=== PATIENT | female | born 1995 | race Caucasian/White ===

== ENCOUNTER 2019-06-05 10:35 | Emergency (ER) | payer BC ==
[2019-06-05] MEDS ORDERED: METOCLOPRAMIDE 10 MG/2mL INJ ONE (10:55)
[2019-06-05] MEDS ORDERED: KETOROLAC 30 MG/ML INJ ONE (10:55)
[2019-06-05] MEDS ORDERED: NA CHLORIDE 0.9% 1,000 ML ONE (10:55)
[2019-06-05] MEDS ORDERED: DIPHENHYDRAMINE 50 MG/ML VIAL ONE (10:55)
[2019-06-05] MEDS ORDERED: dexAMETHasone 10 MG/ML VIAL ONE (10:56)
--- NOTE | 2019-06-05 12:25 | EDPHYS ---
Physician Documentation [facility] Name: Carolyn Hicks Age: 23 yrs Sex: Female : 1995 Arrival Date: 06/05/2019 Time: 10:38 Bed 6 Private MD: Julián Evans E ED Physician Shamar Seals HPI: 06/05 10:40 This 23 yrs old Female presents to ER via Ambulatory with complaints of jmm Headache. 10:40 Onset: The symptoms/episode began/occurred gradually, 1 day(s) ago. Associated signs jmm and symptoms: Pertinent positives: nausea, Photophobia vomiting. the symptoms are aggravated by lights. The patient has experienced similar episodes in the past. This is a 23 year old female with a history of migraines that presents to the ED with complaints of migraine headache beginning yesterday which is not relieved by home medication. Patient complains of photosensitivity, vomiting. Patient has had similar headaches before and is gradual onset. . 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 - Coronavirus screen:: The patient has NOT traveled to [place], [place], or [place] in the past 14 days. The patient has NOT had contact with known/suspected case of Coronavirus? Proceed with normal triage procedures. - Social history:: Smoking status: Patient denies any tobacco usage or history of. - Ebola Screening: : No symptoms or risks identified at this time. ROS: 10:40 Constitutional: Negative for fever, chills, and weight loss, Cardiovascular: Negative jmm for chest pain, palpitations, and edema, Respiratory: Negative for shortness of breath, cough, wheezing, and pleuritic chest pain. 10:40 Abdomen/GI: Positive for nausea, vomiting. 10:40 Neuro: Positive for headache. Exam: 10:40 Head/Face: atraumatic. Eyes: EOMI, no conjunctival erythema appreciated ENT: Moist jmm Mucus Membranes Neck: Trachea midline, Supple Chest/axilla: Normal chest wall appearance and motion. Cardiovascular: Regular rate and rhythm. No edema appreciated Respiratory: Normal respirations, no respiratory distress appreciated Abdomen/GI: Non distended, soft Back: Normal ROM Skin: General appearance color normal MS/ Extremity: Moves all extremities, no obvious deformities appreciated, no edema noted to the lower extremities Neuro: Awake and alert, normal gait Psych: Behavior is normal, Mood is normal, Patient is cooperative and pleasant 10:40 Constitutional: The patient appears alert, awake, uncomfortable. Vital Signs: 10:42 BP 128 / 75; Pulse 103; Resp 16; Temp 98.2; Pulse Ox 99% on R/A; Weight 63.5 kg; Height hb 5 ft. 6 in. (167.64 cm); Pain 9/10; 11:56 BP 101 / 67; Pulse 79; Resp 17; Pulse Ox 96% on R/A; tw2 10:42 Body Mass Index 22.60 (63.50 kg, 167.64 cm) hb MDM: 10:54 Patient medically screened. shine 12:23 Data reviewed: vital signs, nurses notes. Counseling: I had a detailed discussion with [facility] the patient and/or guardian regarding: the historical points, exam findings, and any diagnostic results supporting the discharge/admit diagnosis, the need for outpatient follow up, to return to the emergency department if symptoms worsen or persist or if there are any questions or concerns that arise at home. ED course: Headache completely relieved in the ED. Patient is alert and non toxic in appearance in the ED. I do not suspect SAH or Meningitis. Patient advised to follow up with pcp and otherwise given strict return precautions. Patient understood and agrees with the plan of care. . 06/05 10:45 Order name: Saline Lock; Complete Time: 11:04 [facility] Administered Medications: 10:44 CANCELLED (will use 1 liter): NS 0.9% 500 ml IV at bolus once [facility] 11:00 Drug: Ketorolac 30 mg Route: IVP; Site: right antecubital; tw2 12:44 Follow up: Response: No adverse reaction; Marked relief of symptoms; Pain is decreased em 11:02 Drug: diphenhydrAMINE 25 mg Route: IVP; Site: right antecubital; tw2 12:43 Follow up: Response: No adverse reaction; Marked relief of symptoms em 11:05 Drug: Reglan 10 mg Route: IVP; Site: right antecubital; tw2 12:44 Follow up: Response: No adverse reaction em 11:05 Drug: NS 0.9% 1000 ml Route: IV; Rate: 1 bolus; Site: right antecubital; tw2 12:44 Follow up: IV Status: Order to discontinue infusion; IV Intake: 600ml em 11:06 Drug: Decadron - Dexamethasone 10 mg Route: IVP; Site: right antecubital; tw2 12:44 Follow up: Response: No adverse reaction; Marked relief of symptoms; Pain is decreased em Disposition: 06/05/19 12:24 Discharged to Home. Impression: Migraine. - Condition is Stable. - Discharge Instructions: Migraine Headache. - Medication Reconciliation Form, Thank You Letter, Antibiotic Education, Prescription Opioid Use, Work release form form. - Follow up: Julián Evans MD; When: 2 - 3 days; Reason: Recheck today's complaints, Continuance of care, Re-evaluation by your physician. Addendum: 06/07/2019 07:04 Co-signature as Attending Physician, Shamar Seals MD I agree with the assessment and c cooper plan of care. Signatures: Shamar Seals MD MD cha Mickail, Joel, PA PA [facility] Eldon Alston, MAY OLVERA Sarah Nguyễn RN RN Lorean Anderson RN RN tw2 Corrections: (The following items were deleted from the chart) 06/05 10:44 10:42 NS 0.9% 500 ml IV at bolus once ordered. [facility] 12:43 10:42 Urine Dipstick-Ancillary ordered. [facility] em 12:45 12:24 06/05/2019 12:24 Discharged to Home. Impression: Migraine. Condition is Stable. em Forms are Work release form, Medication Reconciliation Form, Thank You Letter, Antibiotic Education, Prescription Opioid Use. Follow up: Julián Evans; When: 2 - 3 days; Reason: Recheck today's complaints, Continuance of care, Re-evaluation by your physician. lisbet
--- NOTE | 2019-06-05 12:25 | ER ---
Nurse's Notes [facility] Name: Carolyn Hicks Age: 23 yrs Sex: Female : 1995 Arrival Date: 06/05/2019 Time: 10:38 Bed 6 Private MD: Julián Evans E Diagnosis: Migraine Presentation: 06/05 10:39 Presenting complaint: Headache x 2 days, + photosensitivity, + nausea, unrelieved by hb Fioricet. Hx of migraines. Transition of care: patient was not received from another setting of care. Onset of symptoms was June 04, 2019. Risk Assessment: Do you want to hurt yourself or someone else? Patient reports no desire to harm self or others. Initial Sepsis Screen: Does the patient meet any 2 criteria? HR > 90 bpm. No. Patient's initial sepsis screen is negative. Does the patient have a suspected source of infection? No. Patient's initial sepsis screen is negative. Care prior to arrival: Medication(s) given: Fioricet at 0800. 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 - Coronavirus screen:: The patient has NOT traveled to [place], [place], or [place] in the past 14 days. The patient has NOT had contact with known/suspected case of Coronavirus? Proceed with normal triage procedures. - Social history:: Smoking status: Patient denies any tobacco usage or history of. - Ebola Screening: : No symptoms or risks identified at this time. Screenin:10 Abuse screen: Denies threats or abuse. Nutritional screening: No deficits noted. tw2 Tuberculosis screening: No symptoms or risk factors identified. Fall Risk None identified. Assessment: 11:56 Reassessment: Patient appears in no apparent distress at this time. Patient and/or tw2 family updated on plan of care and expected duration. Pain level reassessed. Patient is alert, oriented x 3, equal unlabored respirations, skin warm/dry/pink. Vital Signs: 10:42 BP 128 / 75; Pulse 103; Resp 16; Temp 98.2; Pulse Ox 99% on R/A; Weight 63.5 kg; Height hb 5 ft. 6 in. (167.64 cm); Pain 9/10; 11:56 BP 101 / 67; Pulse 79; Resp 17; Pulse Ox 96% on R/A; tw2 10:42 Body Mass Index 22.60 (63.50 kg, 167.64 cm) hb ED Course: 10:38 Patient arrived in ED. mr 10:38 Julián Evans MD is Private Physician. mr 10:41 Triage completed. hb 10:42 Arm band placed on. hb 10:43 Tyler Sultana PA is PHCP. jmm 10:43 Shamar Seals MD is Attending Physician. jmm 10:45 Bed in low position. Call light in reach. Pulse ox on. NIBP on. tw2 10:49 Lorena Anderson RN is Primary Nurse. tw2 11:00 Inserted saline lock: 22 gauge in right antecubital area, using aseptic technique. tw2 12:24 Julián Evans MD is Referral Physician. jmm 12:45 No provider procedures requiring assistance completed. IV discontinued, intact, em bleeding controlled, No redness/swelling at site. Pressure dressing applied. Administered Medications: 10:44 CANCELLED (will use 1 liter): NS 0.9% 500 ml IV at bolus once jmm 11:00 Drug: Ketorolac 30 mg Route: IVP; Site: right antecubital; tw2 12:44 Follow up: Response: No adverse reaction; Marked relief of symptoms; Pain is decreased em 11:02 Drug: diphenhydrAMINE 25 mg Route: IVP; Site: right antecubital; tw2 12:43 Follow up: Response: No adverse reaction; Marked relief of symptoms em 11:05 Drug: Reglan 10 mg Route: IVP; Site: right antecubital; tw2 12:44 Follow up: Response: No adverse reaction em 11:05 Drug: NS 0.9% 1000 ml Route: IV; Rate: 1 bolus; Site: right antecubital; tw2 12:44 Follow up: IV Status: Order to discontinue infusion; IV Intake: 600ml em 11:06 Drug: Decadron - Dexamethasone 10 mg Route: IVP; Site: right antecubital; tw2 12:44 Follow up: Response: No adverse reaction; Marked relief of symptoms; Pain is decreased em Intake: 12:44 IV: 600ml; Total: 600ml. em Outcome: 12:24 Discharge ordered by MD. solano 12:45 Discharged to home ambulatory. em 12:45 Condition: good 12:45 Discharge instructions given to patient, Instructed on discharge instructions, follow up and referral plans. 12:45 Patient left the ED. em Signatures: Tyler Sultana PA PA jmm Rivera, Mary Eldon Alston RN RN em Baxter, Heather, RN RN Lorena Anderson RN RN tw2
[2019-06-05 13:08] VITALS: TEMP 98.2
[2019-06-06 00:41] VITALS: BP 101/67; O2SAT 96
== END 2019-06-05 12:45 | disposition home or self-care (01) ==
LOC: ER 10:35
DX: G43.909 Migraine, unspecified, not intractable, without status migrainosus (principal); Z88.1 Allergy status to other antibiotic agents
CPT/HCPCS: 96361; 96375; 96374; 99283; J2765; J1200; J1100; J7030

== ENCOUNTER 2021-05-12 18:27 | Emergency (ER) | payer BC, OTHER ==
--- NOTE | 2021-05-12 21:27 | ER ---
Nurse's Notes [facility] Name: Carolyn Hicks Age: 25 yrs Sex: Female : 1995 Arrival Date: 05/12/2021 Time: 18:29 Bed External Waiting Private MD: Diagnosis: Presentation: 05/12 18:56 Chief complaint: Patient states: Hx of migraines-has had a headache all day today. jg9 Coronavirus screen: Vaccine status: Patient reports being unvaccinated. Ebola Screen: Patient negative for fever greater than or equal to 101.5 degrees Fahrenheit, and additional compatible Ebola Virus Disease symptoms Patient denies exposure to infectious person. Patient denies travel to an Ebola-affected area in the 21 days before illness onset. Initial Sepsis Screen: Does the patient meet any 2 criteria? No. Patient's initial sepsis screen is negative. Does the patient have a suspected source of infection? No. Patient's initial sepsis screen is negative. Risk Assessment: Do you want to hurt yourself or someone else? Patient reports no desire to harm self or others. 18:56 Method Of Arrival: Ambulatory [facility] 18:56 Acuity: MAUDE 3 9 19:01 Onset of symptoms is unknown. j9 Triage Assessment: 18:59 Headache History: The patient has had previous headaches and this one is similar to jg9 previous episodes. General: Appears uncomfortable, Behavior is crying. Pain: Complains of pain in head Pain currently is 10 out of 10 on a pain scale. Pain began 4 hours ago. Also complains of nausea, light and sound sensitivity. 19:00 Neuro: Reports headache. 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 Pneumococcal vaccine is not up to date, Flu vaccine is not up to date. - Social history:: Smoking status: Patient denies any tobacco usage or history of. Screenin:00 Abuse screen: Denies threats or abuse. Denies injuries from another. Nutritional jg9 screening: No deficits noted. Tuberculosis screening: No symptoms or risk factors identified. Fall Risk None identified. Vital Signs: 18:56 BP 121 / 79; Pulse 86; Resp 22 S; Temp 98.1(TE); Pulse Ox 100% on R/A; Weight 63.5 kg; jg9 Height 5 ft. 7 in. (170.18 cm) (R); 18:56 Body Mass Index 21.93 (63.50 kg, 170.18 cm) jg9 ED Course: 18:29 Patient arrived in ED. as 18:58 Triage completed. jg9 19:01 Arm band placed on left wrist. jg9 21:26 Patient's name was called from ER lobby. No response. Unable to locate patient. Will bb disposition as left without being seen by a provider. Administered Medications: No medications were administered Outcome: 21:26 Patient left the ED. bb Signatures: Coni Joe Brenda, RN RN bb Helga Chaparro RN RN jg9
[2021-05-12 21:33] VITALS: BP 121/79; TEMP 98.1; O2SAT 100
== END 2021-05-12 21:26 | disposition left against medical advice (07) ==
LOC: ER 18:27
DX: Z53.21 Procedure and treatment not carried out due to patient leaving prior to being seen by health care provider (principal)
CPT/HCPCS: 99281